=== PATIENT | female | born 1985 | race Caucasian/White ===

== ENCOUNTER 2021-11-10 14:43 | Outpatient (CLI) | payer OTHER, SELFPAY ==
[2021-11-10 17:41] LABS: Albumin* 4.6 g/dL (3.3-5.0); Chloride* 103 mmol/L (96-114)
[2021-11-10 17:42] LABS: Potassium* 4.2 mmol/L (3.6-5.1); Sodium* 141 mmol/L (135-149)
[2021-11-10 17:44] LABS: Alkaline Phosphatase* 104 U/L (40-150); Aspartate Amino Transferase* 18 U/L (12-35); Bilirubin Total* 0.4 mg/dL (0.1-1.5); Blood Urea Nitrogen* 15 mg/dL (5-24); Carbon Dioxide* 25 mmol/L (20-32); Cholesterol* 201 mg/dL (90-199); Creatinine* 0.7 mg/dL (0.5-1.5); Estimated Glomerular Filt Rate 116 ml/min; Glucose* 110 mg/dL (60-115); Triglycerides* 92 mg/dL (40-149)
[2021-11-10 17:45] LABS: Alanine Aminotransferase* 19 U/L (4-35); Calcium* 9.3 mg/dL (8.4-10.6); HDL Cholesterol* 56 mg/dL (>=50); LDL Cholesterol Calculated 127 mg/dL (<100)
== END 2021-11-10 14:44 | disposition home or self-care (01) ==
PROVIDERS: PCP Family Medicine; Visit Provider Family Medicine
DX: Z01.419 Encounter for gynecological examination (general) (routine) without abnormal findings (principal); E66.01 Morbid (severe) obesity due to excess calories; E03.9 Hypothyroidism, unspecified; R53.83 Other fatigue
CPT/HCPCS: 80053; 80061; 84443

== ENCOUNTER 2022-04-15 08:19 | Outpatient (CLI) | payer OTHER, SELFPAY ==
[2022-04-15 10:52] LABS: Cholesterol* 183 mg/dL (90-199); Triglycerides* 68 mg/dL (40-149)
[2022-04-15 10:53] LABS: HDL Cholesterol* 52 mg/dL (>=50); LDL Cholesterol Calculated 117 mg/dL (<100)
== END 2022-04-15 08:20 | disposition home or self-care (01) ==
PROVIDERS: PCP Family Medicine; Visit Provider Family Medicine
DX: E78.5 Hyperlipidemia, unspecified (principal); E03.9 Hypothyroidism, unspecified
CPT/HCPCS: 80061; 84443

== ENCOUNTER 2022-10-06 17:26 | Emergency (ER) | payer OTHER, SELFPAY ==
[2022-10-06 17:35] VITALS: BP 179/81; PULSE 79; RESP 20; TEMP 36.4; O2SAT 98; BMI 59.6
--- NOTE | 2022-10-06 17:46 | CRLHL7_ITS ---
For Patients: As a result of the Century Cures Act, medical imaging exams and procedure reports are released immediately into your electronic medical record. You may view this report before your referring provider. If you have questions, please contact your health care provider. INDICATION: Right lower quadrant pain. TECHNIQUE: CT abdomen and pelvis acquired with intravenous contrast, 150 mL of Isovue 370. Coronal and sagittal reformats. COMPARISON: None available. FINDINGS: The imaged lower chest is unremarkable. Diffuse hepatic steatosis. No suspicious hepatic lesion. The portal and hepatic veins appear patent. Distended gallbladder containing multiple gallstones with diffuse wall thickening. No biliary dilatation. The pancreas, spleen, and adrenals appear unremarkable. Symmetric renal enhancement. No hydronephrosis bilaterally. Unremarkable bladder. Anteverted uterus with IUD in place. Right adnexal 4.1 x 4.1 cm cystic lesion (series 2, image 129). Colonic diverticulosis without acute inflammatory changes. Nondilated small bowel. Normal appendix. No free-air, free-fluid, focal collection, or lymphadenopathy. Normal caliber abdominal aorta. No suspicious osseous lesion. IMPRESSION: 1. Cholelithiasis with gallbladder distention and diffuse wall thickening, concerning for acute cholecystitis. 2. Right adnexal 4.1 cm cystic lesion is indeterminate. 3. Diffuse hepatic steatosis. 4. Colonic diverticulosis. Dictated by Aniceto Pennington MD @ 10/06/2022 7:32:44 PM Please note that all CT scans at this facility use dose modulation, iterative reconstruction, and/or weight-based dosing when appropriate to reduce radiation dose to as low as reasonably achievable. Dictated by: Aniceto Pennington MD @ 10/06/2022 19:32:48 (Electronically Signed)
[2022-10-06 17:58] LABS: Appearance Urine Clear (Clear); Bilirubin Urine Negative (Negative); Blood Urine Trace-intact (Negative); Color Urine Yellow (Yellow); Glucose Urine Negative (Negative); Ketones Urine Negative (Negative); Leukocyte Esterase Urine Negative (Negative); Nitrite Urine Negative (Negative); Protein Urine Negative (Negative); Specific Gravity Urine >= 1.030 (1.000-1.030); Urobilinogen Urine 0.2 (0.2-1.0); pH Urine 5.5 (5.0-8.5)
[2022-10-06 18:02] LABS: RBC Urine 0-2 (0-2); Squamous Epithelial Cell Urine Few (None-Few)
[2022-10-06] MEDS: KETOROLAC 15 MG/ML inj IVP (18:16)
[2022-10-06] MEDS: ONDANSETRON 2 MG/ML inj 4 MG IVP (18:17)
--- NOTE | 2022-10-06 18:38 | ED_ITS ---
HPI - Abdominal Pain General Time Seen by Provider: 18:00 Date Seen: 10/06/22 Chief Complaint: Abdominal Pain Stated Complaint: Abdominal pain Time Seen by Provider: 10/06/22 17:40 Source: patient Mode of arrival: ambulatory Limitations: no limitations History of Present Illness HPI narrative: Patient is a 37-year-old female with history of diabetes, hyperthyroidism, sleep apnea presenting in respective for abdominal pain. She says the pain started last night and it is worse in the right lower quadrant. States previous surgeries include tubal ligation and ovarian cyst removal. Denies ever having symptoms like this before. She states that the pain has not improved to the a is an 810 dull pain. Does not radiate anywhere. She has not been eating much today due to the pain and nausea. She is still nauseated now but has not had any emesis. Denies fevers, chills, dysuria. States she has had several small soft bowel movements today. Denies vaginal discharge, vaginal bleeding. Related Data Home Medications Medication Instructions Recorded Confirmed levonorgestrel 21 mcg/24 hours (8 1 device intrauterine ONCE 11/10/21 10/06/22 yrs) 52 mg intrauterine device (Mirena) Previous Rx's Medication Instructions Recorded levothyroxine 50 mcg tablet 50 mcg PO QDAY #90 tabs 04/15/22 metformin 500 mg tablet 1,000 mg (2 x 500 mg) PO BIDWMEAL 04/15/22 #360 tabs Allergies Allergy/AdvReac Type Severity Reaction Status Date / Time No Known Drug Allergies Allergy Verified 10/06/22 17:05 Review of Systems Status of ROS Reports: 10 or more systems reviewed and unremarkable except as noted in History and below [facility] Medical History (Updated 10/06/22 @ 20:12 by Johnathan Cardona DO) History of abnormal cervical Pap smear (2017) ?Z87.42 - Personal history of other diseases of the female genital tract (ICD-10) Uterine leiomyoma ?D25.9 - Leiomyoma of uterus, unspecified (ICD-10) Epiploic appendagitis ?K63.89 - Other specified diseases of intestine (ICD-10) GERD (gastroesophageal reflux disease) ?K21.9 - Gastro-esophageal reflux disease without esophagitis (ICD-10) Type 2 diabetes mellitus (~11/11/21) ?E11.9 - Type 2 diabetes mellitus without complications (ICD-10) Morbid obesity with BMI of 50.0-59.9, adult ?E66.01 - Morbid (severe) obesity due to excess calories (ICD-10) ?Z68.43 - Body mass index [BMI] 50.0-59.9, adult (ICD-10) Hypothyroid ?E03.9 - Hypothyroidism, unspecified (ICD-10) Sleep apnea in adult (2019) ?G47.30 - Sleep apnea, unspecified (ICD-10) Mild intermittent asthma ?J45.20 - Mild intermittent asthma, uncomplicated (ICD-10) Surgical History (Updated 04/15/22 @ 06:36 by Lenka Angel MD) IUD (intrauterine device) in place (~02/2021) ?Z97.5 - Presence of (intrauterine) contraceptive device (ICD-10) History of ovarian cystectomy (08/17/21) ?Z98.890 - Other specified postprocedural states (ICD-10) ?Z87.42 - Personal history of other diseases of the female genital tract (ICD-10) H/O tubal ligation (08/17/21) ?Z98.51 - Tubal ligation status (ICD-10) Family History (Updated 11/16/21 @ 08:45 by Zuleyka Malik) Father Diabetes High blood pressure Brother TBI (traumatic brain injury) Social History (Updated 04/15/22 @ 08:16 by Lenka Angel MD) Narrative: , 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[employer], 2 kids, from [place] Nonsmoker, rarely uses alcohol, exercise 4 times a week cross fit Smoking Status: Never smoker How often do you have a drink containing alcohol: monthly or less How many standard drinks containing alcohol do you have on a typical day: 1 or 2 How often do you have six or more drinks on one occasion: Never AUDIT-C Alcohol total score: 1 Non-prescribed substance use: denies use Little interest or pleasure in doing things: not at all Feeling down, depressed, or hopeless: not at all Exam Narrative: Exam Narrative: Const: Well-nourished, Well-developed, in mild distress Eyes: PERRL, no conjunctival injection, and symmetrical lids ENMT: Atraumatic external nose and ears. Moist mucous membranes. Neck: Symmetric, trachea midline, No thyromegaly. CVS: RRR, No murmurs or gallops. Peripheral pulses 2+ and equal in all extremities RESP: Unlabored respiratory effort. Clear to auscultation bilaterally. GI: Tenderness to the right lower quadrant noted. Nondistended, No rebound or guarding. MSK:Extremities w/o deformity, Normal Active ROM Skin: Warm, Dry. No rashes or lesions. Neuro: Normal Muscle tone, No focal neurological deficits. Psych: Awake, Alert, & Oriented x3. Appropriate mood and affect. Const: Vital Signs, click to edit/add: Vital Signs - 24 hr 10/06/22 17:35 10/06/22 19:22 Temperature 97.5 F L Pulse Rate [Pulse Oximeter] 79 68 Respiratory Rate 20 24 Blood Pressure [Ri ght Forearm] 179/81 H 137/68 Pulse Oximetry 98 97 Oxygen Delivery Me thod Room Air Room Air Course Vital Signs Vital signs: Initial Vital Signs Temperature 97.5 F L 10/06/22 17:35 Temperature Source Temporal Artery Scan 10/06/22 17:35 Pulse Rate 79 10/06/22 17:35 Respiratory Rate 20 10/06/22 17:35 Blood Pressure 179/81 H 10/06/22 17:35 Blood Pressure Mean 113 H 10/06/22 17:35 Pulse Oximetry 98 10/06/22 17:35 Oxygen Delivery Method Room Air 10/06/22 17:35 Vital Signs Temperature 97.5 F L 10/06/22 17:35 Pulse Rate 79 10/06/22 17:35 Respiratory Rate 20 10/06/22 17:35 Blood Pressure 179/81 H 10/06/22 17:35 Pulse Oximetry 98 10/06/22 17:35 Oxygen Delivery Method Room Air 10/06/22 17:35 Temperature 97.5 F L 10/06/22 17:35 Pulse Rate 68 10/06/22 19:22 Respiratory Rate 24 10/06/22 19:22 Blood Pressure 137/68 10/06/22 19:22 Pulse Oximetry 97 10/06/22 19:22 Oxygen Delivery Method Room Air 10/06/22 19:22 MDM - Abdominal Pain MDM Narrative Medical decision making narrative: Patient is a 37-year-old female presenting emergency department for abdominal pain. Pain going on for couple days. Pain is mostly in his right lower quadrant. She has been nauseated but has not vomited. Has not been major drink much due to the symptoms. Previous surgeries include tubal ligation and ovarian cyst removal. Patient does state now that she knows 1 week ago she had similar pain and vomited once and then it went away. Abdominal workup was ordered including CBC, CMP, urinalysis, lipase, urine test, CT abdomen pelvis with IV contrast. At this times differentials include is diverticulitis, constipation, acute appendicitis, small-bowel obstruction, cholelithiasis. Patient's lab work returned with white count 11.5. Rest of her labs show no concerning abnormalities. Patient was given Toradol for pain she states she is feeling much better now. Patient CT scan returned showing concerns for acute cholecystitis. She is not having any SIRS criteria at this time. It is unlikely she has cholecystitis at this time I did speak to Dr. Diaz and she recommends considering the patient's symptoms have improved and overall is appearing well we can discharge the patient home and patient will return to same day surgery tomorrow to have a cholecystectomy. Patient is agreeable with this plan. Lab Data Attestation: I reviewed the patient's lab results. Labs: Lab Results 10/06/22 10/06/22 10/06/22 Range/Units 17:41 18:20 18:36 WBC 11.54 H (4.50-11.00) K/uL RBC 4.56 (4.00-5.20) m/uL Hgb 12.8 (12.0-16.0) gm/dL Hct 38.9 (33.0-51.0) % MCV 85 (80-100) fL MCH 28 (26-34) pg MCHC 33 (32-36) gm/dL RDW Coeff of Bhavna 13.4 (11.5-15.5) % Plt Count 351 (140-440) K/uL Neut % (Auto) 67.5 (42.0-72.0) % Lymph % (Auto) 24.9 (20-44) % [place] % (Auto) 4.5 (0.0-11.0) % Eos % (Auto) 2.2 (0.0-7.0) % Baso % (Auto) 0.6 (0.0-3.0) % Neut # (Auto) 7.80 H (1.7-7.0) K/uL Lymph # (Auto) 2.90 (0.90-2.90) K/uL [place] # (Auto) 0.50 (0.00-0.90) K/UL Eos # (Auto) 0.30 (0.00-0.50) K/uL Baso # (Auto) 0.10 (0.00-0.30) K/uL Abs Immat Gran (auto) 0.00 (0.00-0.30) K/uL Imm/Tot Granulo (auto) 0.3 % Sodium 135 (135-149) mmol/L Potassium 3.6 (3.6-5.1) mmol/L Chloride 101 (96-114) mmol/L Carbon Dioxide 22 (20-32) mmol/L BUN 8 (5-24) mg/dL Creatinine 0.5 (0.5-1.5) mg/dL Estimated Creat Clear 123.02 Estimated GFR 125 ml/min Glucose 163 H (60-115) mg/dL Calcium 9.6 (8.4-10.6) mg/dL Total Bilirubin 0.4 (0.1-1.5) mg/dL AST 17 (12-35) U/L ALT 22 (4-35) U/L Alkaline Phosphatase 82 (40-150) U/L Total Protein 7.8 (6.0-8.3) g/dL Albumin 4.5 (3.3-5.0) g/dL Lipase 69 (23-300) U/L HCG, Qual Negative (Negative) Urine Color Yellow (Yellow) Urine Appearance Clear (Clear) Urine pH 5.5 (5.0-8.5) Ur Specific Adin >= 1.030 (1.000-1.030) Urine Protein Negative (Negative) Urine Glucose (UA) Negative (Negative) Urine Ketones Negative (Negative) Urine Blood Trace-intact A (Negative) Urine Nitrite Negative (Negative) Urine Bilirubin Negative (Negative) Urine Urobilinogen 0.2 (0.2-1.0) Ur Leukocyte Esterase Negative (Negative) Urine RBC 0-2 (0-2) Urine WBC 5-10 A (0-5) Ur Squamous Epith Cells Few (None-Few) Urine Bacteria None (None) Lab Acknowledgement Test Added Discharge Plan Discharge Clinical Impression: Cholelithiasis Qualifiers: Cholelithiasis location: bile duct Cholangitis presence: without cholangitis Biliary obstruction: without biliary obstruction Qualified Code(s): K80.50 - Calculus of bile duct without cholangitis or cholecystitis without obstruction Patient Disposition: Home, Self-Care Condition: Improved Instructions: Gallstones (ED) Additional Instructions: Return to the hospital tomorrow at 06:00 at to same-day surgery. Do not eat or drink anything after midnight. Return for new or worsening symptoms. Prescriptions: No Action Mirena 20 mcg/24 hours (7 yrs) 52 mg intrauterine device 1 device intrauterine ONCE Rx Instructions: as a single dose levothyroxine 50 mcg tablet 50 mcg PO QDAY Qty: 90 4RF metformin 500 mg tablet 1,000 mg PO BIDWMEAL Qty: 360 4RF Rx Instructions: Take 2 tablets with breakfast and 2 tablets with dinner Follow Up/Referrals: Lenka Angel MD [Primary Care Provider] - Stand Alone Forms: [employer] Info Instructions
[2022-10-06 18:42] LABS: HCG Qualitative* Negative (Negative)
[2022-10-06 18:46] LABS: Albumin* 4.5 g/dL (3.3-5.0)
[2022-10-06 18:47] LABS: Chloride* 101 mmol/L (96-114); Potassium* 3.6 mmol/L (3.6-5.1); Sodium* 135 mmol/L (135-149)
[2022-10-06 18:48] LABS: Basophils Percent Auto 0.6 % (0.0-3.0); Eosinophils Percent Auto 2.2 % (0.0-7.0); Hematocrit 38.9 % (33.0-51.0); Hemoglobin* 12.8 gm/dL (12.0-16.0); Immature Granulocytes Pct Auto 0.3 %; Lymphocytes Percent Auto 24.9 % (20-44); Mean Corpuscular HGB Conc 33 gm/dL (32-36); Mean Corpuscular Hemoglobin 28 pg (26-34); Mean Corpuscular Volume 85 fL (80-100); Monocytes Percent Auto 4.5 % (0.0-11.0); Neutrophils Percent Auto 67.5 % (42.0-72.0); Platelet Count* 351 K/uL (140-440); RDW Coefficient of Variation % 13.4 % (11.5-15.5); Red Blood Count 4.56 m/uL (4.00-5.20); White Blood Count* 11.54 K/uL (4.50-11.00)
[2022-10-06 18:49] LABS: Alkaline Phosphatase* 82 U/L (40-150); Aspartate Amino Transferase* 17 U/L (12-35); Bilirubin Total* 0.4 mg/dL (0.1-1.5); Blood Urea Nitrogen* 8 mg/dL (5-24); Carbon Dioxide* 22 mmol/L (20-32); Creatinine* 0.5 mg/dL (0.5-1.5); Est. Creatinine Clearance* 123.02; Estimated Glomerular Filt Rate 125 ml/min; Glucose* 163 mg/dL (60-115); Lipase* 69 U/L (23-300); Total Protein* 7.8 g/dL (6.0-8.3)
[2022-10-06 18:50] LABS: Alanine Aminotransferase* 22 U/L (4-35); Calcium* 9.6 mg/dL (8.4-10.6)
[2022-10-06 18:51] LABS: Slide Review Reflex No
[2022-10-06 19:22] VITALS: BP 137/68; PULSE 68; RESP 24; O2SAT 97
--- NOTE | 2022-10-06 20:32 | ED.NURSE ---
Patient given the option of IV removal or to keep IV in place for planned AM surgery and she elected to keep in IV. Care instructions reviewed and left arm wrapped with coban.
== END 2022-10-06 20:31 | disposition home or self-care (01) ==
PROVIDERS: Emergency Provider Student in an Organized Health Care Education/Training Program; PCP Family Medicine
DX: K80.50 Calculus of bile duct without cholangitis or cholecystitis without obstruction (principal)
CPT/HCPCS: 36415; 74177; 80053; 81001; 83690; 84703; 85025; 87086; 96374; 96375; 99283; 99284; J1885; J2405; Q9967

== ENCOUNTER 2022-10-07 05:56 | Day surgery (SDC) | payer OTHER, SELFPAY ==
[2022-10-07] VITALS (14 sets, daily range): BP systolic 124–163; BP diastolic 67–87; PULSE 74–87; RESP 12–16; TEMP 36.6–37.6; O2SAT 92–98; BMI 59.3
[2022-10-07] MEDS: LACTATED RINGERS 1000 ML 1,000 ML 100 ML IV ×2 (06:50→10:18)
--- NOTE | 2022-10-07 06:57 | W.ANESCHARGE ---
Anesthesia Charges Start Date/Time Anesthesia Start Date: 10/07/22 Anesthesia Start Time: 07:35 Stop Date/Time Anesthesia Stop Date: 10/07/22 Anesthesia Stop Time: 10:09
[2022-10-07] MEDS: BUPIVACAINE 0.5% 30 ML INJECTION (09:49)
--- NOTE | 2022-10-07 10:08 | P.GSOP_ITS ---
Operative Note Date of procedure: 10/07/22 Pre-op diagnosis: Acute cholecystitis Post-op diagnosis: same Type of Procedure: Laparoscopic cholecystectomy Indications: Patient is a 37-year-old female who presented to the emergency department yesterday evening with right lower quadrant abdominal pain. Workup and clinical symptoms were consistent with acute cholecystitis. Risks and benefits of operative intervention were discussed at length with the patient. Risks included but was not limited to: Bleeding, infection, risk of damage to surrounding structures, possible need for additional procedures, possible need to convert to an open operation and postoperative complications such as pneumonia, pulmonary emboli or NE. All questions and concerns were addressed with the patient agreeing to proceed. Procedure Description: After discussing the risks and benefits of the procedure, the patient signed informed consent.? The operative site was marked and the patient was brought to the operating room and placed on the operating table in supine position.? Care was taken to pad the patient's pressure points.?? The patient was then intubated by anesthesia.?? The operative site was then prepped and draped in the usual sterile fashion.? A time-out was then performed. Entrance to the abdomen was gained via a 5 mm Visiport in the left upper quadrant. The abdomen was insufflated and briefly surveyed for signs of injury. There was none. 11 mm supra umbilical port was placed as well as 2 working ports along the right costal margin. Patient was then placed in reverse Trendelenburg position with the right side up. The gallbladder fundus was grasped and retracted cephalad. A large amount of dissection was needed to free omental adhesions from the gallbladder. The infundibulum was grasped. A combination of hook cautery and blunt dissection was used to carefully dissect out the cystic duct and artery until they could clearly be seen entering the gallbladder without any intervening structures. This was made difficult secondary to a mental adhesions and edematous tissue. A large stone was palpated overlying the cystic duct The gallbladder was dissected off the cystic plate to achieve the critical view. Once this was achieved the cystic duct and artery were each clipped with 2 clips proximally and 1 clip distally and transected with the scissors. The gallbladder was then taken off of the liver bed. There were several large veins within the peritoneum of the gallbladder. A few clips were placed to help assist with hemostasis during this portion of the dissection. The gallbladder was then removed from the abdomen using an Endo-Catch bag. The gallbladder bed was surveyed for hemostasis, which was excellent. The umbilical port fascia was closed with 0 Vicryl via the David- Kenrick. All other ports removed under direct visualization. The skin was closed with absorbable subcuticular suture. Instrument sponge and needle counts were correct at the end of the case. The patient was then woken and transferred to the PACU in stable condition. Findings: Inflamed and edematous gallbladder, consistent with acute cholecystitis. Anesthesia: GETA Surgeon: Maria De Jesus Diaz MD Estimated blood loss (mL): 10 Specimen: Gallbladder Condition: stable Disposition: PACU
--- NOTE | 2022-10-07 10:11 | PM.GSCN ---
History of Present Illness Consult details Date Seen: 10/07/22 Consult date: 10/07/22 Narrative: Patient presented to the emergency department yesterday evening for right-sided abdominal pain. She states that the pain came out of the blue the day before and became worse yesterday, which is what prompted her to come in. She does state that she has had pain like this once before. This occurred for a few hours before resolved. She denies any radiation of the pain. She does have a slight decrease in appetite and some nausea, but no emesis. Last bowel movements were yesterday. This morning her pain is significantly improved, although she is still slightly tender in the right upper quadrant. Her abdominal surgical history is positive for tubal ligation and ovarian cyst removal. Review of Systems Status of ROS: Reports: 6 or more systems reviewed and unremarkable except as noted in History and below [facility] Medical History (Updated 10/06/22 @ 20:12 by Johnathan Cardona DO) History of abnormal cervical Pap smear (2016) ?Z87.42 - Personal history of other diseases of the female genital tract (ICD-10) Uterine leiomyoma ?D25.9 - Leiomyoma of uterus, unspecified (ICD-10) Epiploic appendagitis ?K63.89 - Other specified diseases of intestine (ICD-10) GERD (gastroesophageal reflux disease) ?K21.9 - Gastro-esophageal reflux disease without esophagitis (ICD-10) Type 2 diabetes mellitus (~11/11/21) ?E11.9 - Type 2 diabetes mellitus without complications (ICD-10) Morbid obesity with BMI of 50.0-59.9, adult ?E66.01 - Morbid (severe) obesity due to excess calories (ICD-10) ?Z68.43 - Body mass index [BMI] 50.0-59.9, adult (ICD-10) Hypothyroid ?E03.9 - Hypothyroidism, unspecified (ICD-10) Sleep apnea in adult (2019) ?G47.30 - Sleep apnea, unspecified (ICD-10) Mild intermittent asthma ?J45.20 - Mild intermittent asthma, uncomplicated (ICD-10) Surgical History (Updated 04/15/22 @ 06:36 by Lenka Angel MD) IUD (intrauterine device) in place (~02/2021) ?Z97.5 - Presence of (intrauterine) contraceptive device (ICD-10) History of ovarian cystectomy (08/17/21) ?Z98.890 - Other specified postprocedural states (ICD-10) ?Z87.42 - Personal history of other diseases of the female genital tract (ICD-10) H/O tubal ligation (08/17/21) ?Z98.51 - Tubal ligation status (ICD-10) Family History (Updated 11/16/21 @ 08:45 by Zuleyka Malik) Father Diabetes High blood pressure Brother TBI (traumatic brain injury) Social History (Updated 04/15/22 @ 08:16 by Lenka Angel MD) Narrative: , 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[employer], 2 kids, 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, rarely uses alcohol, exercise 4 times a week cross fit Smoking Status: Never smoker How often do you have a drink containing alcohol: monthly or less How many standard drinks containing alcohol do you have on a typical day: 1 or 2 How often do you have six or more drinks on one occasion: Never AUDIT-C Alcohol total score: 1 Non-prescribed substance use: denies use Little interest or pleasure in doing things: not at all Feeling down, depressed, or hopeless: not at all Meds Home Medications and Allergies Home Medications Medication Instructions Recorded Confirmed Type levonorgestrel 21 mcg/24 hours (8 1 device intrauterine ONCE 11/10/21 10/06/22 History yrs) 52 mg intrauterine device (Mirena) Allergies Allergy/AdvReac Type Severity Reaction Status Date / Time No Known Drug Allergies Allergy Verified 10/07/22 06:57 Exam Narrative: Exam Narrative: General: Alert and oriented, no acute distress Respiratory: Equal breath rise bilaterally, maintained on room air CV: Regular rhythm rate, well perfused Abdomen: Soft, obese abdomen. Some tenderness in right upper quadrant with deep palpation. No guarding or rebound. Const: Vital Signs, click to edit/add: Vital Signs - 24 hr 10/07/22 06:59 Temperature 99.6 F Pulse Rate 75 Respiratory Rate 16 Blood Pressure 136/74 Pulse Oximetry 96 Oxygen Delivery Me thod Room Air Results Labs Labs: CBC demonstrates a WBC of 11. LFTs within normal limits. Imaging Abdomen CT scan report/results: report reviewed and image reviewed Additional studies: Distension of the gallbladder, some gallbladder wall thickening. Large stones seen in the neck of the gallbladder. Assessment and Plan Assessment and plan (1) Cholelithiasis: Status: Acute Plan Patient is a 37-year-old female with clinical symptoms and workup consistent with acute cholecystitis. I had a detailed conversation with the patient regarding the diagnosis of acute cholecystitis. We discussed the treatment options including observation with diet modification and laparoscopic cholecystectomy. We discussed the risks of surgery (including but not limited to) the risks of bleeding, infection, injury to other structures in the abdomen including bile duct injury, bile leak and conversion to an open operation. We discussed the possibility that the patient's pain not improve with surgery. We discussed the possibility of permanent post-operative diarrhea that may require medical management. Additionally, the conceivably of complications requiring additional surgery or further hospitalization were also discussed including the risks of NH, respiratory failure, stroke and blood clots. The patient voiced an understanding of our conversation, had the opportunity to ask questions, agreed to accept the risks of surgery and asked that we proceed with surgery.
--- NOTE | 2022-10-07 10:12 | W.ANESCHARGE ---
Anesthesia Charges Start Date/Time Anesthesia Start Date: 10/07/22 Anesthesia Start Time: 07:35 Stop Date/Time Anesthesia Stop Date: 10/07/22 Anesthesia Stop Time: 10:09
[2022-10-07] MEDS: fentaNYL 100 MCG/2 ML inj 50 MCG IVP (10:18)
[2022-10-07] MEDS: ACETAMINOPHEN 325 MG TABLET 650 MG PO (11:00)
[2022-10-07] MEDS: OXYCODONE 5 MG TABLET PO (11:00)
== END 2022-10-07 13:23 | disposition home or self-care (01) ==
LOC: SS 06:04 → OR 06:26
PROVIDERS: PCP Family Medicine; Visit Provider Surgery
PROC: 0FT44ZZ Resection of Gallbladder, Percutaneous Endoscopic Approach (ICD-10-PCS; CPT 47562; principal; 2022-10-07 07:30)
DX: K80.12 Calculus of gallbladder with acute and chronic cholecystitis without obstruction (principal)
CPT/HCPCS: 47562; 00790; 88304; A9270; J0330; J0665; J1100; J1200; J1885; J2405; J2543; J2704; J3010; J3475; J3490; J7120

== ENCOUNTER 2023-06-08 07:29 | Outpatient (CLI) | payer OTHER, SELFPAY | END 2023-06-08 07:30 | disposition home or self-care (01) | LOC: NFLDREF 06-09 07:41 | PROVIDERS: PCP Family Medicine; Referring Provider Family Medicine; Visit Provider Family Medicine | DX: E11.9 Type 2 diabetes mellitus without complications (principal); E78.5 Hyperlipidemia, unspecified | CPT/HCPCS: 80053; 80061; 82043; 82570 ==

== ENCOUNTER 2023-08-31 07:30 | Outpatient (CLI) | payer OTHER, SELFPAY | END 2023-08-31 07:31 | disposition home or self-care (01) | LOC: NFLDREF 09-04 13:29 | PROVIDERS: PCP Family Medicine; Referring Provider Family Medicine; Visit Provider Family Medicine | DX: E78.5 Hyperlipidemia, unspecified (principal); E11.9 Type 2 diabetes mellitus without complications; E03.9 Hypothyroidism, unspecified | CPT/HCPCS: 80053; 80061; 84443 ==

== ENCOUNTER 2024-03-01 09:28 | Outpatient (CLI) | payer OTHER, SELFPAY | END 2024-03-01 09:29 | disposition home or self-care (01) | LOC: NFLDREF 13:29 | PROVIDERS: PCP Family Medicine; Referring Provider Family Medicine; Visit Provider Family Medicine | DX: E78.5 Hyperlipidemia, unspecified (principal); E11.9 Type 2 diabetes mellitus without complications | CPT/HCPCS: 80053; 80061 ==

== ENCOUNTER 2024-08-26 07:30 | Outpatient (CLI) | payer BC, SELFPAY | END 2024-08-26 07:31 | disposition home or self-care (01) | LOC: NFLDREF 18:54 | PROVIDERS: PCP Family Medicine; Referring Provider Family Medicine; Visit Provider Family Medicine | DX: E78.5 Hyperlipidemia, unspecified (principal); E11.9 Type 2 diabetes mellitus without complications; E03.9 Hypothyroidism, unspecified; R53.83 Other fatigue; Z79.899 Other long term (current) drug therapy | CPT/HCPCS: 80053; 80061; 82043; 82570; 82607; 84439; 84443 ==

== ENCOUNTER 2024-08-30 14:47 | Outpatient (CLI) | payer BC, SELFPAY ==
[2024-09-04 05:12] LABS: HPV Source Cervical; HPV, High Risk by TMA Not Detected
== END 2024-08-30 14:48 | disposition home or self-care (01) ==
PROVIDERS: PCP Family Medicine; Visit Provider Family Medicine
DX: Z12.4 Encounter for screening for malignant neoplasm of cervix (principal); Z11.51 Encounter for screening for human papillomavirus (HPV)
CPT/HCPCS: 87624; 87625; 88141; 88142

== ENCOUNTER 2025-03-03 07:35 | Outpatient (CLI) | payer BC, SELFPAY | END 2025-03-03 07:36 | disposition home or self-care (01) | LOC: NFLDREF 03-06 16:03 | PROVIDERS: PCP Family Medicine; Referring Provider Family Medicine; Visit Provider Family Medicine | DX: E53.8 Deficiency of other specified B group vitamins (principal); E03.9 Hypothyroidism, unspecified; E66.01 Morbid (severe) obesity due to excess calories; Z68.42 Body mass index [BMI] 45.0-49.9, adult; E11.9 Type 2 diabetes mellitus without complications | CPT/HCPCS: 80053; 82306; 82607; 84443 ==